=== PATIENT | female | born 1965 | race Caucasian/White ===

== ENCOUNTER 2016-11-25 18:19 | Observation (INO) | payer OTHER ==
[~2016-11-25] VITALS: Ht 167.6 cm; Wt 74.8 kg
--- NOTE | 2016-11-25 18:44 | NUR ---
PT STATES THAT SHE HAS BEEN HAVING INTERMITTANT PAIN BELOW BILATERAL BREAST FOR THE PAST WEEK , TODAY THE PAIN HAS BEEN CONSTANT AND RADIATES INTO HER BACK
--- NOTE | 2016-11-25 20:09 | ED GENERAL ADULT ---
History of Present Illness General Chief Complaint: General Adult Stated Complaint: SOB/BACK PAIN/ABD PAIN Source: patient Exam Limitations: no limitations Vital Signs & Intake/Output Vital Signs & Intake/Output Vital Signs Date Time Temp Pulse Resp B/P Pulse O2 O2 Flow FiO2 Ox Delivery Rate 11/25 2050 97.2 62 16 123/65 100 Room Air 11/25 2023 98 Room Air 11/25 1840 98.0 77 18 132/79 99 Room Air Allergies Coded Allergies: Iodinated Contrast Media - Oral and (Intermediate, HIVES 11/25/16) Reconcile Medications Docusate Sodium (Colace) 100 MG CAPSULE 1 CAP PO BID PRN CONSTIPATION stool softener available over the counter, as needed Oxycodone HCl/Acetaminophen (Percocet 5-325 MG Tablet) 5 MG-325 MG TABLET 1-2 TAB PO Q4-6 PRN PRN pain control take as directed, as needed for pain control. do not combine with tylenol. Triage Note: PT STATES THAT SHE HAS BEEN HAVING INTERMITTANT PAIN BELOW BILATERAL BREAST FOR THE PAST WEEK , TODAY THE PAIN HAS BEEN CONSTANT AND RADIATES INTO HER BACK Triage Nurses Notes Reviewed? yes HPI: Patient is a 51 year old female presents complaining of epigastric/RUQ pain x 1 week, that radiates to her back. Intermittent episodes of breathlessness. No dyspnea currently. One episode of pain radiating to her right shoulder. Positive nausea. Pain is currently moderate, is severe with palpation. No association with eating. Patient last ate at approximately 2 PM today. Denies vomiting, fevers, diarrhea, chest pain. (ELADIO HUGHES) Past History Travel History Traveled to [place] past 21 day No Medical History Any Pertinent Medical History? see below for history Neurological: NONE EENT: NONE Cardiovascular: NONE Respiratory: asthma Gastrointestinal: NONE Hepatic: NONE Renal: NONE Musculoskeletal: NONE Psychiatric: NONE Endocrine: NONE Blood Disorders: NONE Cancer(s): NONE Surgical History Surgical History: non-contributory Psychosocial History What is your primary language Czech Tobacco Use: Never used ETOH Use: denies use Illicit Drug Use: denies illicit drug use Family History Hx Contributory? Yes (father, [place] age 51) (ELADIO HUGHES) Review of Systems Review of Systems Constitutional: Denies: chills, fever. EENTM: Reports: no symptoms. Respiratory: Denies: cough, short of breath. Cardiovascular: Denies: chest pain. GI: Reports: see HPI. Genitourinary: Reports: no symptoms. Denies: dysuria, hematuria. Musculoskeletal: Reports: back pain. Skin: Reports: no symptoms. Neurological/Psychological: Reports: no symptoms. Hematologic/Endocrine: Reports: no symptoms. Immunologic/Allergic: Reports: no symptoms. (ELADIO HUGHES) Physical Exam Physical Exam General Appearance: well developed/nourished, alert, awake Head: atraumatic, normal appearance Eyes: Bilateral: normal appearance, PERRL, EOMI. Ears, Nose, Throat: hearing grossly normal Neck: normal inspection, supple, full range of motion Respiratory: normal breath sounds, chest non-tender, no respiratory distress, lungs clear Cardiovascular: regular rate/rhythm Gastrointestinal: normal bowel sounds, soft, POSITIVE Bates SIGN., negative mcburney's point tenderness Back: normal inspection, normal range of motion Extremities: normal inspection, normal capillary refill, normal range of motion, no edema Neurologic/Psych: no motor/sensory deficits, awake, alert, oriented x 3, normal gait, normal mood/affect Skin: intact, normal color, warm/dry Lymphatic: no anterior cervical lela Core Measures ACS in differential dx? Yes ASA ordered for poss ACS? No-ACS ruled out CVA/TIA Diagnosis: No Severe Sepsis Present: No Septic Shock Present: No (ELADIO HUGHES) Progress Differential Diagnoses I considered the following diagnoses in my evaluation of the patient: Biliary colic, cholecystitis, appendicitis, pancreatitis, choledocholithiasis, gastroenteritis, GERD, ACS, pulmonary embolism, AAA, SBO Plan of Care: Orders Procedure Date/time Status Place in observation 11/25 2307 Active Add-on Test (ER Only) 11/25 2131 Active URINE 11/25 2123 Complete URINALYSIS 11/25 2023 Complete TROPONIN LEVEL 11/25 2023 Complete LIPASE 11/25 2023 Complete COMPREHENSIVE METABOLIC PANEL 11/25 2023 Complete CBC WITHOUT DIFFERENTIAL 11/25 2023 Complete AMYLASE 11/25 2023 Complete EKG 11/25 1843 Active Laboratory Tests 11/25/162123: Urine Color YEL, Urine Clarity CLEAR, Urine pH 6.0, Ur Specific [place] 1.010, Urine Protein NEG, Urine Ketones NEG, Urine Nitrite NEG, Urine Bilirubin NEG, Urine Urobilinogen 0.2, Ur Leukocyte Esterase NEG, Ur Microscopic SEDIMENT EXAMINED, Urine RBC RARE, Ur Epithelial Cells MOD H, Urine Hemoglobin SMALL H, Urine Glucose NEG, Urine Test NEGATIVE 11/25/162025: Anion Gap 12, Estimated GFR > 60, BUN/Creatinine Ratio 21.4, Glucose 89, Calcium 9.8, Total Bilirubin 0.6, AST 26, ALT 35, Alkaline Phosphatase 122, Troponin I < 0.01, Total Protein 8.9 H, Albumin 4.8, Globulin 4.1, Albumin/Globulin Ratio 1.2, Amylase 115 H, Lipase 161, CBC w Diff NO MAN DIFF REQ, RBC 4.73, MCV 89.9, MCH 30.1, RDW 13.0, MPV 9.2, Gran % 52.2, Lymphocytes % 36.2, Monocytes % 6.9, Eosinophils % 4.1, Basophils % 0.6, Absolute Granulocytes 5.1, Absolute Lymphocytes 3.6 H, Absolute Monocytes 0.7 H, Absolute Eosinophils 0.4, Absolute Basophils 0.1, PUBS MCHC 33.5 11/25/2016 10:31:23 PM: Results of labs and imaging discussed with patient. Patient's abdomen reexamined. Patient with severe tenderness of the right upper quadrant, positive Bates sign. Surgery paged to discuss. 11/25/2016 11:02:21 PM: Discussed with Dr. Desai: if patient is comfortable then can discharge home on pain medication and antibiotics. If patient is not comfortable then have surgical PA come to evaluate and admit patient. (ELADIO HUGHES) Diagnostic Imaging: Viewed by Me: Ultrasound. Discussed w/RAD: Ultrasound. Initial ED EKG: normal axis, normal intervals, normal p-waves, normal QRS complex, normal sinus rhythm, no ST T wave changes (ELADIO HUGHES) Departure Departure Time of Disposition: 2303 Disposition: STILL A PATIENT Condition: Stable Clinical Impression Primary Impression: Cholecystitis Referrals: UNKNOWN (PCP/Family) Departure Forms: Customer Survey General Discharge Information Prescriptions: Current Visit Scripts Docusate Sodium (Colace) 1 CAP PO BID PRN CONSTIPATION 14 Days stool softener available over the counter, as needed Oxycodone HCl/Acetaminophen (Percocet 5-325 MG Tablet) 1-2 TAB PO Q4-6 PRN PRN pain control #30 TAB take as directed, as needed for pain control. do not combine with tylenol. Observation Note Spoke With: MADDIE DESAI MD Physician Advisor Notified: MARLENA WEBSTER,MANPREET [address] Patient In: Non-ED OBS Care Area Rationale for Observation: My rational for observation is as follows: serial abdominal exams, possible further imaging vs OR intervention (ELADIO HUGHES) PA/CRISIS INTERVENTION SPECIALIST Co-Sign Statement Statement: ED Attending supervision documentation- [] I saw and evaluated the patient. I have also reviewed all the pertinent lab results and diagnostic results. I agree with the findings and the plan of care as documented in the PA's/CRISIS INTERVENTION SPECIALIST's documentation. [X] I have reviewed the ED Record and agree with the PA's/CRISIS INTERVENTION SPECIALIST's documentation. [] Additions or exceptions (if any) to the PAs/CRISIS INTERVENTION SPECIALIST's note and plan are summarized below: [] (MANPREET MENDIOLA MD) Critical Care Note Critical Care Note Critical Care Time: non-applicable (ELADIO HUGHES)
--- NOTE | 2016-11-25 20:19 | NUR ---
MARY ANN Chowdary IN FOR EVAL, THIS RN ESTABLISHED IV ACCESS #20 LAC. LABS DRAWN AND SENT TO LAB
--- NOTE | 2016-11-25 20:28 | NUR ---
PT AWAITING US
[2016-11-25 20:37] LABS: ABSOLUTE BASOPHIL COUNT 0.1 /CUMM (0.0-0.2); ABSOLUTE EOSINOPHIL COUNT 0.4 /CUMM (0.0-0.7); ABSOLUTE GRANULOCYTE CT 5.1 /CUMM (1.4-6.5); ABSOLUTE LYMPH COUNT 3.6 /CUMM (1.2-3.4); ABSOLUTE MONOCYTE COUNT 0.7 /CUMM (0.10-0.60); BASOPHIL % 0.6 % (0.0-2.0); EOSINOPHIL % 4.1 % (0-5); GRANULOCYTE % 52.2 % (42.2-75.2); HEMATOCRIT 42.5 % (37-47); MEAN CORPUSCULAR HGB 30.1 PG (27.0-31.0); MEAN CORPUSCULAR HGB CONC 33.5 G/DL (33.0-37.0); MEAN CORPUSCULAR VOLUME 89.9 FL (81.0-99.0); MEAN PLATELET VOLUME 9.2 FL (7.4-10.4); PLATELET COUNT 268 /CUMM (130-400); RED BLOOD CELL CT 4.73 /CUMM (4.20-5.40); WHITE BLOOD CELL COUNT 9.8 /CUMM (4.8-10.8)
--- NOTE | 2016-11-25 21:16 | NUR ---
PT AMBULATED TO THE BATHROOM WITH STEADY GAIT INDEPENDENTLY. URINE SPECIMEN CUP GIVEN TO PT
--- NOTE | 2016-11-25 21:28 | NUR ---
PT TO US VIA STRETCHER
--- NOTE | 2016-11-25 21:28 | NUR ---
URINE TRIO SENT TO LAB.
--- NOTE | 2016-11-25 21:51 | NUR ---
PT BACK FROM US VIA STRETCHER
--- NOTE | 2016-11-25 22:07 | NUR ---
PT MEDICATED WITH 4MG MORPHINE PER EMAR FOR PAIN 03/28.
--- NOTE | 2016-11-25 22:21 | ULTRASOUND REPORT ---
EXAMINATION: US ABDOMEN LIMITED CLINICAL INFORMATION: Epigastric abdominal pain. Evaluate for cholecystitis. COMPARISON: None. TECHNIQUE: Real-time imaging of the right upper quadrant abdominal viscera. FINDINGS: PANCREAS: The visualized portions of the pancreas appear unremarkable. The distal pancreatic body and tail are obscured by overlying bowel gas. LIVER: The liver is normal in size but mildly increased in echogenicity and is visualized measuring approximately 15.9 cm in length. No focal hepatic lesions are identified and there is no appreciable intrahepatic biliary ductal dilatation. GALLBLADDER: The gallbladder is contracted, limiting evaluation. There are no visible gallstones or biliary sludge. No pericholecystic fluid is identified. The gallbladder wall appears thickened and is visualized measuring up to 5 mm in diameter. No sonographic Bates's sign was reported. COMMON BILE DUCT: Normal in caliber measuring 0.5 cm in diameter. RIGHT KIDNEY: Unremarkable. No hydronephrosis. No renal calculi or focal parenchymal lesions. The kidney measures 10.9 cm in maximum dimension. FREE FLUID: None. IMPRESSION: 1. The gallbladder appears contracted even though the patient has been reportedly been fasting for the last 7 1/2 hours. There are no visible gallstones. No biliary sludge or pericholecystic fluid is identified. The gallbladder wall appears thickened and is visualized measuring up to 5 mm in diameter. Circumferential gallbladder wall thickening is entirely nonspecific and may represent secondary reactive inflammatory changes within the gallbladder secondary to an underlying infectious or inflammatory process within the right upper quadrant of the abdomen. A chronic or acute on chronic cholecystitis cannot be excluded. Consider correlation with a HIDA scan. 2. Mildly increased echogenicity of the liver parenchyma, indicative of fatty infiltration of the liver.
--- NOTE | 2016-11-25 23:36 | History & Physical ---
General Information and HPI Source of Information: patient Exam Limitations: no limitations History of Present Illness: Patient a 51-year-old female who presented to [place] ED with points of abdominal pain. Patient has had right upper quadrant abdominal pain for a week and half with worsening severity over the last day. She states that the pain is a sharp, achy pain that is constant. It is aggravated with food or with pressure. She has been nauseous as well but no emesis with decreased appetite. Passing flatus and having normal bowel movements. Denies any recent fevers or illnesses. Denies chest pain or shortness of breath. Allergies/Medications Allergies: Coded Allergies: Iodinated Contrast Media - Oral and (Intermediate, HIVES 11/25/16) Past History Travel History Traveled to [place] past 21 day No Medical History Neurological: NONE EENT: NONE Cardiovascular: NONE Respiratory: asthma Gastrointestinal: NONE Hepatic: NONE Renal: NONE Musculoskeletal: NONE Psychiatric: NONE Endocrine: NONE Blood Disorders: NONE Cancer(s): NONE Surgical History Surgical History: , Left oophrectomy Past Family/Social History Psychosocial History ETOH Use: denies use Illicit Drug Use: denies illicit drug use Review of Systems Review of Systems Constitutional: Denies: chills, fever. EENTM: Reports: no symptoms. Cardiovascular: Denies: chest pain, palpitations. Respiratory: Denies: short of breath, sputum production. GI: Reports: see HPI. Genitourinary: Denies: dysuria, frequency. Musculoskeletal: Reports: no symptoms. Skin: Denies: change in skin color, lesions. All Other Systems: Reviewed and Negative Exam & Diagnostic Data Last 24 Hrs of Vital Signs/I&O Vital Signs Date Time Temp Pulse Resp B/P Pulse O2 O2 Flow FiO2 Ox Delivery Rate 11/25 2050 97.2 62 16 123/65 100 Room Air 11/25 2023 98 Room Air 11/25 1840 98.0 77 18 132/79 99 Room Air Physical Exam General Appearance Alert, Oriented X3, Cooperative, No Acute Distress Skin No Rashes, No Breakdown, No Significant Lesion HEENT Atraumatic, EOMI, Mucous Membr. moist/pink Neck Supple Cardiovascular Regular Rate, Normal S1, Normal S2 Lungs Clear to Auscultation, Normal Air Movement Abdomen Soft, Non-distended, +TTP in epigastric and RUQ with +Bates's sign. No rebound TTP. Neurological Normal Speech, Cranial Nerves 3-12 NL Extremities Normal Pulses Last 24 Hrs of Labs/Huey: Laboratory Tests 11/25/162123: Urine Color YEL, Urine Clarity CLEAR, Urine pH 6.0, Ur Specific [place] 1.010, Urine Protein NEG, Urine Ketones NEG, Urine Nitrite NEG, Urine Bilirubin NEG, Urine Urobilinogen 0.2, Ur Leukocyte Esterase NEG, Ur Microscopic SEDIMENT EXAMINED, Urine RBC RARE, Ur Epithelial Cells MOD H, Urine Hemoglobin SMALL H, Urine Glucose NEG, Urine Test NEGATIVE 11/25/162025: Anion Gap 12, Estimated GFR > 60, BUN/Creatinine Ratio 21.4, Glucose 89, Calcium 9.8, Total Bilirubin 0.6, AST 26, ALT 35, Alkaline Phosphatase 122, Troponin I < 0.01, Total Protein 8.9 H, Albumin 4.8, Globulin 4.1, Albumin/Globulin Ratio 1.2, Amylase 115 H, Lipase 161, CBC w Diff NO MAN DIFF REQ, RBC 4.73, MCV 89.9, MCH 30.1, RDW 13.0, MPV 9.2, Gran % 52.2, Lymphocytes % 36.2, Monocytes % 6.9, Eosinophils % 4.1, Basophils % 0.6, Absolute Granulocytes 5.1, Absolute Lymphocytes 3.6 H, Absolute Monocytes 0.7 H, Absolute Eosinophils 0.4, Absolute Basophils 0.1, PUBS MCHC 33.5 Diagnostic Data Other Results EXAM TYPE: US - US-LIMITED ABDOMEN EXAMINATION: US ABDOMEN LIMITED CLINICAL INFORMATION: Epigastric abdominal pain. Evaluate for cholecystitis. COMPARISON: None. TECHNIQUE: Real-time imaging of the right upper quadrant abdominal viscera. FINDINGS: PANCREAS: The visualized portions of the pancreas appear unremarkable. The distal pancreatic body and tail are obscured by overlying bowel gas. LIVER: The liver is normal in size but mildly increased in echogenicity and is visualized measuring approximately 15.9 cm in length. No focal hepatic lesions are identified and there is no appreciable intrahepatic biliary ductal dilatation. GALLBLADDER: The gallbladder is contracted, limiting evaluation. There are no visible gallstones or biliary sludge. No pericholecystic fluid is identified. The gallbladder wall appears thickened and is visualized measuring up to 5 mm in diameter. No sonographic Bates's sign was reported. COMMON BILE DUCT: Normal in caliber measuring 0.5 cm in diameter. RIGHT KIDNEY: Unremarkable. No hydronephrosis. No renal calculi or focal parenchymal lesions. The kidney measures 10.9 cm in maximum dimension. FREE FLUID: None. IMPRESSION: 1. The gallbladder appears contracted even though the patient has been reportedly been fasting for the last 7 1/2 hours. There are no visible gallstones. No biliary sludge or pericholecystic fluid is identified. The gallbladder wall appears thickened and is visualized measuring up to 5 mm in diameter. Circumferential gallbladder wall thickening is entirely nonspecific and may represent secondary reactive inflammatory changes within the gallbladder secondary to an underlying infectious or inflammatory process within the right upper quadrant of the abdomen. A chronic or acute on chronic cholecystitis cannot be excluded. Consider correlation with a HIDA scan. 2. Mildly increased echogenicity of the liver parenchyma, indicative of fatty infiltration of the liver. Assessment/Plan Assessment: 51yo F with cholecystitis. LFTs, WBC, Lytes are WNL. Ultrasound shows gall bladder wall thickening. - Admit to floor under Dr. Hany Desai - NPO - IVF - IV Unasyn - Pain control - I/O's - sc heparin and ALPS - OOB as desired - cbc, bep, lfts in a.m. - Likely OR tomorrow for laparoscopic vs open cholecystectomy - Discussed with Dr. Genoveva Desai As Ranked By This Provider Problem List: 1. Cholecystitis Core Measures/Miscellaneous Acute Coronary Syndrome ACS Diagnosis: No Cerebrovascular Accident CVA/TIA Diagnosis: No Congestive Heart Failure CHF Diagnosis: No Venous Thromboembolism VTE Risk Factors: Age > 40 VTE Prophylaxis Ordered Inpt: Mech & Pharm No Mech VTE prophylaxis d/t: No contraindications No VTE Pharm Prophylaxis d/t: No contraindications VTE Diagnosis: No VTE Type: NONE VTE Confirmed by (Test): NONE Severe Sepsis Severe Sepsis Present: No Septic Shock Septic Shock Present: No Miscellaneous Documentation Attending Case Discussed With: Hany Desai MD Primary Care Physician: UNKNOWN Patient sees these Specialists Unknown Level of Patient Care: General Medicine
--- NOTE | 2016-11-25 23:52 | NUR ---
PT MEDICATED WITH 3G UNASYN INFUSING AT 200ML/HR, PT MEDICATED WITH 500UNITS HEPARIN SC IN LEFT ABD PER EMAR
--- NOTE | 2016-11-26 00:06 | NUR ---
BED ASSIGNMENT 177-01
--- NOTE | 2016-11-26 00:14 | NUR ---
REPORT GIVEN TO OSMANI LAMAR. PT READY TO GO UP TO RM
[2016-11-26 08:00] VITALS: BP 90/60
[2016-11-26 08:11] LABS: ABSOLUTE BASOPHIL COUNT 0 /CUMM (0.0-0.2); ABSOLUTE EOSINOPHIL COUNT 0.3 /CUMM (0.0-0.7); ABSOLUTE GRANULOCYTE CT 3.7 /CUMM (1.4-6.5); ABSOLUTE LYMPH COUNT 2.9 /CUMM (1.2-3.4); ABSOLUTE MONOCYTE COUNT 0.5 /CUMM (0.10-0.60); BASOPHIL % 0.7 % (0.0-2.0); EOSINOPHIL % 4.5 % (0-5); GRANULOCYTE % 49.5 % (42.2-75.2); HEMATOCRIT 39.3 % (37-47); MEAN CORPUSCULAR HGB 30.4 PG (27.0-31.0); MEAN CORPUSCULAR HGB CONC 33.6 G/DL (33.0-37.0); MEAN CORPUSCULAR VOLUME 90.4 FL (81.0-99.0); MEAN PLATELET VOLUME 9.5 FL (7.4-10.4); PLATELET COUNT 214 /CUMM (130-400); RBC DISTRIBUTION WIDTH 12.9 % (11.5-14.5); RED BLOOD CELL CT 4.35 /CUMM (4.20-5.40); WHITE BLOOD CELL COUNT 7.4 /CUMM (4.8-10.8)
--- NOTE | 2016-11-26 11:12 | Patient Discharge Instructions ---
Discharge Instructions General Discharge Information You were seen/treated for: cholecystitis You had these procedures: laparoscopic cholecystectomy (11/26/16) Watch for these problems: fever>101.3, increased pain, redness/swelling/drainage No bath, but you may shower: Yes Other wound care: you may removed outer dressings. leave white steri strips in place. ok to shower. keep incisions clean & dry. Diet Continue normal diet: Yes Recommended Diet: Low Fat Activity Full Activity/No Limits: No Activity Self Limited: Yes Pounds, do NOT lift more than: 10 Other activity limits: no heavy lifting. no strenuous activity. Acute Coronary Syndrome Inclusion Criteria At DC or during hospital stay patient has or had the following: ACS DIAGNOSIS No Discharge Core Measures Meds if any: Prescribed or Continued at Discharge Meds if any: NOT Prescribed or Continued at Discharge Congestive Heart Failure Inclusion Criteria At DC or during hospital stay patient has or had the following: CHF DIAGNOSIS No Discharge Core Measures Meds if any: Prescribed or Continued at Discharge Meds if any: NOT Prescribed or Continued at Discharge Cerebrovascular accident Inclusion Criteria At DC or during hospital stay patient has or had the following: CVA/TIA Diagnosis No Discharge Core Measures Meds if any: Prescribed or Continued at Discharge Meds if any: NOT Prescribed or Continued at Discharge Venous thromboembolism Inclusion Criteria VTE Diagnosis No VTE Type NONE VTE Confirmed by (Test) NONE Discharge Core Measures - Per Current guidelines, there needs to be overlap - treatment for the first 5 days of Warfarin therapy. - If discharged on Warfarin prior to 5 days of - overlap therapy, the patient will need to be - assessed for post discharge needs including - *Post discharge parental anticoagulation - *Warfarin and/or parental anticoagulation education - *Follow up date to check INR post discharge At least 5 days overlap therapy as Inpatient No Meds if any: Prescribed or Continued at Discharge Note: Overlap Therapy is Warfarin and Anticoagulant Meds if any: NOT Prescribed or Continued at Discharge
[2016-11-26] MEDS ORDERED: PERCOCET 5-3251 EACH PO (11:13)
[2016-11-26] MEDS ORDERED: COLACE100 M1 PO (11:13)
--- NOTE | 2016-11-26 11:16 | Surg Short-stay <48hrs Dis Sum ---
Visit Information Visit Dates Admission Date: 11/25/16 Discharge Date: 11/26/16 Surgical Short Stay DC Summary Admission Diagnosis: cholecystitis Final Diagnosis: cholecystitis Procedure(s): laparoscopic cholecystectomy (11/26/16) Summary/Significant Findings: Admitted 11/25/16 with abdominal pain, and ultrasound findings suggesting gallbladder wall thickening, without stones. Taken to the OR on 11/26 for laparoscopic cholecystectomy. Otherwise uneventful hospital course. Condition at Discharge: stable Discharge Disposition: home or self care Discharge instructions provided to patient/family: Yes Post discharge follow-up plan: call to schedule follow up appointment 1-2 weeks
--- NOTE | 2016-11-26 15:06 | Operative Report ---
Operative/Inv Procedure Report Surgery Date: 11/26/16 Name of Procedure: Laparoscopic cholecystectomy Pre-Operative Diagnosis: acalculous cholecystitis Post-Operative Diagnosis: same Estimated Blood Loss: less than 20cc Surgeon/Balloon Dipper: CASIMIRO WEBSTER,MADDIE Gonzáles PA-C Anesthesia: general endotracheal tube IV Fluids: LR Urine Output: n/a Drains: none Complications: none Condition: stable Operative/Procedure Note Note: After informed consent and proper identification patient was taken the operating room placed on the operating table supine position Venodyne stockings were applied she underwent a general endotracheal anesthetic a Kristian block was performed by anesthesia the abdomen was prepped and draped in normal sterile fashion infraumbilical incision was made with #15 blade the fascia was elevated and opened transversely with a electrocautery to 0 Vicryl sutures were placed in the edge of the fascia and a blunt port cannula was inserted into the abdominal cavity abdomen was insufflated with 14 mm CO2 pressure we placed 3 additional 5 mm trochars one in the upper midline and 2 along the right subcostal margin gallbladder was collapsed but there was omentum adhered to the fundus and infundibulum of a thickened gallbladder wall we grabbed the fundus of the gallbladder and push it up over the liver edge we gently teased the omental adhesions off of the wall of the gallbladder until we could visualize the infundibulum. Using a [place] dissector we dissected out the cystic duct and cystic artery 3 clips were placed proximally on the cystic duct and cystic artery and 2 distally and the duct and artery were divided the gallbladder easily dissected out of the liver bed there was a nice fatty tissue plane between the liver bed and the gallbladder without any interruption of the parenchyma of the liver. We did make a small opening in the gallbladder and suctioned out thick bile. We did not see any stones. The rest of the abdominal cavity was without any obvious abnormal pathology. We suction irrigated the right upper quadrant we placed the gallbladder in a 10 Endo Catch bag and pulled it out through the infraumbilical port removed all trochars under direct visualization we closed the infraumbilical fascia with 0 Vicryl suture we closed skin incisions with interrupted 4-0 Monocryl suture dry sterile dressings were placed the patient tolerated the procedure without complications was extubated and taken the recovery room in stable condition Findings: thick gallbladder wall but nondistended omental adhesions to fundus and body Discharge Disposition: PACU
--- NOTE | 2016-11-26 16:40 | NUR ---
PT RECEIVED BACK TO ROOM 177 S/P LAP VENU. C/O 5/10 PAIN AND SORE THROAT. ORDER FOR D/C IN COMPUTER ONCE PT TOLERATES PO INTAKE. [facility] CALLED TO TAKE DINNER ORDER.
--- NOTE | 2016-11-26 17:02 | PN- General Surgery ---
Subjective Subjective: POST-OP NOTE: Reports expected incisional pain. Waiting to try food. No nausea at this time. Not yet out of bed. She feels ready to void. No dizziness. No shortness of breath. No chest pains. Objective Vital Signs and I&Os Vital Signs Date Time Temp Pulse Resp B/P Pulse O2 O2 Flow FiO2 Ox Delivery Rate 11/26 799 97.5 58 20 90/60 98 11/25 2350 96.8 71 18 103/56 95 Room Air 11/25 2050 97.2 62 16 123/65 100 Room Air 11/25 2023 98 Room Air 11/25 1840 98.0 77 18 132/79 99 Room Air Intake & Output 11/26 1600 11/26 0000 11/25 1600 11/25 0000 Intake Total Output Total Balance Patient 165 lb Weight Physical Exam: General - alert & oriented x 3. comfortable. no acute distress. Lungs - clear bilaterally. no w/r/r. Cardiac - s1s2. reg. Abdomen - soft. dressings c/d/i. galdino-incisional tenderness. Extremities - warm bilaterally. no c/c/e. calves soft and nontender b/l. Assessment/Plan Assessment/Plan This 51 year old white female POD#0 s/p lap kinsey for acalculous cholecystitis to try food percocet for pain oob/ambulation hep sc - dvt ppx d/c home tonight if tolerates food and able to void will d/w Core Measures/Miscellaneous Venous Thromboembolism VTE Risk Factors: Age > 40, Surgery VTE Contraindications: No Contraindications VTE Prophylaxis Ordered Inpt Mech & Pharm VTE Diagnosis: No VTE Type: NONE VTE Confirmed by (Test): NONE Beta Rosanna Is Beta Rosanna a Home Med? No Antibiotics Is Patient on Antibiotics? No
== END 2016-11-26 18:18 ==
LOC: ENRESERV → ENRESERVDT → ENRESERVTM → ERH 18:19 → 1NO 23:41 → ENPENDDIS 23:41 → ERHI 23:41 → 1NO 11-26 00:26
PROVIDERS: Physician Assistant; Physician Assistant Surgical; ADMIT Surgery
DX: K81.1 Chronic cholecystitis (principal); K82.4 Cholesterolosis of gallbladder; J45.990 Exercise induced bronchospasm
CPT/HCPCS: 36415; 81001; 81025; 82436; 88304; 93005; 93010; 96365; 96372; 96375; C9399; J0131; J1100; J1644; J1885; J2405